=== PATIENT | female | born 1955 | race Asian ===

== ENCOUNTER 2017-10-21 07:11 | Day surgery (SDC) | payer BC ==
[2017-10-21] MEDS ORDERED: SOD CHLORIDE 0.9% 1,000 ML IV (08:09)
[2017-10-21] MEDS ORDERED: SOD CHLORIDE 0.9% 500 ML (08:43)
[2017-10-21] MEDS: METOPROLOL 100 MG TAB (11:15)
[2017-10-21] MEDS: CEFAZOLIN 1 GM/50 ML (PMX) 50 ML IVPB (11:30)
[2017-10-21] MEDS: LABETALOL HCL 20MG INJ (11:35)
[2017-10-21] MEDS: FENTAnyl 50 MCG/ML VIAL ×2 (12:05→12:15)
[2017-10-21] MEDS: LIDOCAINE 1%/EPI 30 ML INJ (12:11)
[2017-10-21] MEDS: MIDAZOLAM 1 MG/ML 2 ML INJ (12:15)
[2017-10-21] MEDS: POLYMYXIN/BACITRACIN 1L IRRIG IRR (12:15)
[2017-10-21] MEDS: HEPARIN 1000 UNITS/ML 10 ML INJ (12:20)
[2017-10-21] MEDS ORDERED: HYDROCODONE/APAP (5/325) TAB PO (13:30)
[2017-10-21] MEDS: ONDANSETRON 4 MG INJ (13:42)
[2017-10-21] MEDS: hydrALAzine 20 MG INJ IV ×2 (13:44→14:19)
[2017-10-21] MEDS: METOCLOPRAMIDE 10 MG INJ IV (14:22)
== END 2017-10-21 15:52 | disposition home or self-care (01) ==
LOC: SDS 07:11
DX: C50.911 Malignant neoplasm of unspecified site of right female breast (principal); E11.9 Type 2 diabetes mellitus without complications; E78.5 Hyperlipidemia, unspecified; I10 Essential (primary) hypertension
CPT/HCPCS: 36561; 76942; 82962; 93306